=== PATIENT | male | born 1980 | race Hispanic/Latino ===

== ENCOUNTER 2023-01-16 12:52 | Emergency (ER) | payer OTHER ==
[~2023-01-16] VITALS: Ht 162.6 cm; Wt 49.9 kg
[2023-01-16 12:53] VITALS: BP 110/71
== END 2023-01-16 20:46 | disposition left against medical advice (07) ==
LOC: EDH 12:52
DX: K94.22 Gastrostomy infection (principal); Z53.21 Procedure and treatment not carried out due to patient leaving prior to being seen by health care provider